=== PATIENT | female | born 1935 | race Caucasian/White ===

== ENCOUNTER 2016-09-02 13:36 | Emergency (ER) | payer OTHER ==
[2016-09-02 13:49] VITALS: RESP 16
--- NOTE | 2016-09-02 14:11 | EDPHY ---
H & P Stated Complaint: rt hand swelling/deformity s/p fall on ice 4 days ago Time Seen by Provider: 09/02/16 13:50 HPI/ROS: CHIEF COMPLAINT: Increased pain and swelling to the right hand and wrist HISTORY OF PRESENT ILLNESS: The patient presents to the ED for evaluation of increased pain and swelling to the right hand and wrist. The patient reportedly had a mechanical fall 4 days ago. She thought her symptoms were improving however had worsening swelling and pain over the past 24 hours. This prompted her visit to the ED. Patient denies any focal numbness or weakness. She denies associated pain in her elbow, shoulder, neck or back. REVIEW OF SYSTEMS: A comprehensive 10 point review of systems is otherwise negative aside from elements mentioned in the history of present illness. Source: Patient Exam Limitations: No limitations - Personal History Current Tetanus/Diphtheria Vaccine: Yes Current Tetanus Diphtheria and Acellular Pertussis (TDAP): Yes Tetanus Vaccine Date: 2008 - Medical/Surgical History Hx Asthma: No Hx Chronic Respiratory Disease: No Hx Diabetes: No Hx Cardiac Disease: No Hx Renal Disease: No Hx Cirrhosis: No Hx Alcoholism: No Hx HIV/AIDS: No Hx Splenectomy or Spleen Trauma: No Other PMH: denies - Social History Smoking Status: Never smoked - Physical Exam Exam: General Appearance: Alert, no distress Head: Atraumatic Eyes: Pupils equal, round, reactive ENT, Mouth: No hemotympanum, no oral trauma Neck: Nontender, trachea midline Respiratory: No chest wall tender, subcutaneous air, lungs clear bilaterally Cardiovascular: Regular rate and rhythm Abdomen: Abdomen is soft and nontender, pelvis stable Skin: No lacerations, No abrasion Back: No midline T/L/S pain Extremities: Bruising, ecchymosis, tenderness and deformity noted to right distal radius, no elbow or shoulder pain Neurological: Sensation intact to light touch throughout right upper extremity Constitutional: Initial Vital Signs Heart Rate 83 09/02/16 13:43 Respiratory Rate 16 09/02/16 13:43 Blood Pressure 140/70 H 09/02/16 13:43 O2 Sat (%) 96 09/02/16 13:43 O2 Delivery Mode Room Air Allergies/Adverse Reactions: Penicillins Allergy (Verified 09/02/16 13:43) Home Medications: Medication Instructions Recorded Hydrocodone/APAP 5/325 [Clinton 1 - 2 each PO Q6 PRN #20 tab 09/02/16 5/325] Medical Decision Making - Diagnostics Imaging: Right wrist x-ray: Angulated, comminuted distal radius fracture noted. Images reviewed by myself. Post reduction right wrist x-ray: Some improvement of the angular displacement of the distal radius fracture however there is still displacement secondary to a keyed type fracture protrusion. The patient is noted to be neurologically intact. Procedures: Procedure: Distal radius fracture reduction The patient had a comminuted displaced distal radius fracture reduced by myself after a hematoma block with 5 cc of 1% Marcaine.. The patient tolerated the procedure well. There is not optimal realignment and the fracture fragment continues to demonstrate approximately 50% of dorsal displacement. The patient was placed in a sugar-tong splint by myself. The patient is neurologically intact. She will be referred to our on-call orthopedic surgeon Dr. Ye as she may require ORIF for optimal alignment. The patient will be discharged home with a prescription for Clinton. Procedure: Splint placement. A ortho glass sugar-tong splint was applied to the right upper extremity by [ the tech]. After application of the splint I returned and re-examined the patient. The splint was adequately immobilizing the joint and distal to the splint the patient's circulation and sensation was intact. ED Course/Re-evaluation: The patient presents to the ED with swelling to her right wrist and hand following a mechanical fall. She did have a ring retained on her right 5th finger which was expertly and carefully removed by our ordnance engineering technician Khadijah. Differential Diagnosis: Differential diagnosis considered includes fracture, sprain, dislocation Departure - Departure Disposition: Home, Routine, Self-Care Clinical Impression: Fracture of distal end of radius Condition: Good Instructions: Wrist Fracture in Adults (ED) Additional Instructions: 1. Please schedule a follow-up appointment with the orthopedic surgeon you have been referred to on Sunday for a follow-up visit and discussed treatment options for your fracture. 2. Ice as directed 3. Clinton as needed for pain. Referrals: Bobby Ye MD [Medical Doctor] - As per Instructions
--- NOTE | 2016-09-02 15:16 | DX ---
Right Wrist Series, 4 views dated September 02, 2016 14:15 Indication: Pain. Fall. Findings: A transverse fracture courses through the distal radial metaphysis. The distal fracture f ragment is translated dorsally 1/3rd bone width, minimally impacted, and has mild apex volar angulati on. A subtle fracture may extend to the articular surface along the ulnar margin of the fracture frag ment. Carpal bones normally articulate with the displaced distal fracture fragment. The distal ulna i s intact. Impression: Acute angulated and displaced transverse distal radius fracture.
--- NOTE | 2016-09-02 15:37 | DX ---
Right Wrist - 2 Views dated September 02, 2016 at 3:01 p.m. Indication: Post reduction. Findings: The distal radius fracture fragment is no longer angulated and has been partially reduced. The fracture fragment remains posteriorly displaced one quarter of the bone width. The bones are in n ear-anatomic alignment. Overlying fiberglass splint partially obscures bony detail. Impression: Near-anatomic reduction of distal radius fracture.
[2016-09-02 15:49] VITALS: BP 136/76; PULSE 80; O2SAT 94
== END 2016-09-02 15:48 | disposition home or self-care (01) ==
PROC: 0PSHXZZ Reposition Right Radius, External Approach (ICD-10-PCS; principal; 2016-09-02)
DX: S52.501A Unspecified fracture of the lower end of right radius, initial encounter for closed fracture (principal); W18.39XA Other fall on same level, initial encounter; Y93.89 Activity, other specified
CPT/HCPCS: 25605; 73100; 73110; 99283; A4565

== ENCOUNTER → 2016-09-13 | Outpatient (CLI) | payer OTHER ==
--- NOTE | 2016-09-13 10:58 | DX ---
Right wrist, 3 views. HISTORY: Follow-up fracture. COMPARISON STUDY: September 02, 2016. FINDINGS: Again demonstrated is a transverse distal right radial metaphyseal fracture. From prior damon dy, there is progressive dorsal displacement of the distal radial fracture fragment, currently displa reg by 7.5 mm, with increasing dorsal angulation of the distal radial articular surface. Fragmentatio n and comminution of the dorsal aspect of the distal radial fracture component is present. There is f oreshortening of the radius with secondary ulna plus deformity. No carpal fracture identified, and al ignment is anatomic through the carpus. IMPRESSION: 1. Transverse displaced distal left radial fracture, with increasing dorsal displacement and angulati on of the distal radial fracture fragment from prior study. Comminution of the dorsal aspect of the d istal fracture fragment is present. Secondary impaction and ulna plus deformity.
== END ==
LOC: BMCIMAGING 10:39
PROVIDERS: ATTEND Physician Assistant
DX: S52.501G Unspecified fracture of the lower end of right radius, subsequent encounter for closed fracture with delayed healing (principal); M21.931 Unspecified acquired deformity of right forearm

== ENCOUNTER → 2016-10-17 | Outpatient (CLI) | payer OTHER | LOC: BMCIMAGING 13:08 | PROVIDERS: ATTEND Physician Assistant | DX: S52.501D Unspecified fracture of the lower end of right radius, subsequent encounter for closed fracture with routine healing (principal) ==

== ENCOUNTER → 2016-11-14 | Outpatient (CLI) | payer OTHER | LOC: BMCIMAGING 13:19 | PROVIDERS: ATTEND Physician Assistant | DX: S52.501D Unspecified fracture of the lower end of right radius, subsequent encounter for closed fracture with routine healing (principal); Z96.89 Presence of other specified functional implants ==

== ENCOUNTER → 2018-05-24 | Outpatient (CLI) | payer OTHER | LOC: FIMAGING 11:08 | PROVIDERS: ATTEND Internal Medicine | DX: R18.8 Other ascites (principal); I31.3 Pericardial effusion (noninflammatory); J90 Pleural effusion, not elsewhere classified; R93.8 Abnormal findings on diagnostic imaging of other specified body structures ==

== ENCOUNTER → 2018-10-02 | Outpatient (CLI) | payer OTHER | LOC: FIMAGING 13:45 | PROVIDERS: ATTEND Orthopaedic Surgery | DX: M16.11 Unilateral primary osteoarthritis, right hip (principal) ==

== ENCOUNTER → 2018-10-11 | Outpatient (CLI) | payer OTHER | LOC: FIMAGING 07:54 | PROVIDERS: ATTEND Internal Medicine | DX: J90 Pleural effusion, not elsewhere classified (principal) ==

== ENCOUNTER 2018-11-04 09:16 | Inpatient (IN) | payer OTHER ==
--- NOTE | 2018-11-04 06:41 | PDHPUP ---
History & Physical Update H&P update statement: This history and physical update is based on an assessment of the patient which was completed after admission or registration (within 24 hours), but prior to the surgery/procedure. H&P update: no change in patient's condition since H&P completed
--- NOTE | 2018-11-04 06:42 | PDIAF ---
- Diagnosis Diagnosis: right hip djd Code Status: Full Code - Medication Management Discharge Medications: electronically signed and located in the Home Medication List. - Orders Services needed: Home Care, Physical Therapy Home Care Face to Face: I certify that this patient was under my care and that I had the required [id number]-acnm encounter meeting the encounter requirements on the discharge day. My findings support the fact that the patient is homebound as defined in Home Care Face to Face Continued: CMS Chapter 7 Medicare Benefits Manual 30.1.1 , The condition of the patient is such that there exists a normal inability to leave home and consequently, leaving home would require a considerable and taxing effort. Diet Recommendation: no restrictions on diet Diet Texture: Regular Texture Diet Additional Instructions: TOTAL JOINT ARTHROPLASTY DISCHARGE INSTRUCTIONS 1. Your surgeon follows the [facility] protocol for reducing your risk of DVT (blood clots) following surgery. Medication will be ordered to prevent blood clots. A sudden increase in calf pain and/or swelling could indicate a blood clot in your leg. If this occurs, please call your surgeon or his/her facility assistant. An ultrasound of the leg may be necessary to diagnose a blood clot. If you have conditions that make you a higher risk for blood clots, your surgeon may use more aggressive ways to prevent them. Notify your surgeon if you think you are a high risk for blood clots. 2. Wear your white surgical stockings (REBA hose) for 2 weeks. This decreases your swelling and may help prevent blood clots. It is ok to remove REBA hose at night time to give your legs a break. 3. Swelling and bruising in the surgical leg is common. If you feel that it is excessive, please notify your surgeon. 4. Elevate your surgical leg with the ankle above the hip several times every day. Please keep the leg straight when you elevate by putting pillows under your foot. Do not put pillows under your knee. This will make being able to fully straighten more difficult. This is uncomfortable, but try to do it as much as possible. 5. For total knee replacements use compressive wrap on your knee for 3-5 days after surgery, then you can discontinue it. 6. Use a walker or crutches for 1-2 weeks. Progress your weight-bearing as tolerated. You may start to use a cane when you feel stable and safe. 7. You will receive physical therapy instructions in the hospital. Continue those exercises at home. There are additional exercises in the total joint booklet you were given before surgery. Outpatient physical therapy will begin 7- 10 days after surgery. Please schedule this in advance. 8. Use ice on your knee at least 3-5 times every day for 30 minutes. This helps reduce pain and swelling. Also use it at night before falling asleep. 9. Leave your surgical dressing in place for 2 weeks. Your dressing is water resistant, but not waterproof. Cover it with Saran Wrap or Grvzj-h-Szae before showering. You may shower as soon as you feel safe entering a shower. If you notice bleeding from your incision 2 or 3 days after surgery, please notify your surgeon. 10. Due to narcotics, decreased activity and altered diet, most patients experience constipation after surgery. Use etak-lxn-fnarpob stool softeners while you are on narcotics. 11. You may drive a car when you are comfortable bearing weight, have good muscular control of your leg and are off narcotics. This usually occurs 2-4 weeks after surgery, depending on which leg was operated on. 12. If there are questions not addressed here, please refer the [facility] book given for more information. If you still have questions, please contact your surgeon s office. 13. If you have a life-threatening emergency, please call 911 and go to the emergency room immediately. For non-life threatening emergencies, please call your physicians office for advice before going to the emergency room. - Follow Up Care Current Providers and Referrals: Felix Ramachandran MD [Primary Care Provider] - Bobby Ye MD [Medical Doctor] -
[2018-11-04] MEDS ORDERED: ceFAZolin 1 GM/5 ML SYR ONE (09:41)
[2018-11-04] MEDS ORDERED: LR 1,000 ML IV ONE (09:45)
[2018-11-04] MEDS ORDERED: ACETAMINOPHEN 325 MG TAB PO ONE (09:45)
[2018-11-04] MEDS ORDERED: FAMOTIDINE 20 MG TAB PO ONE (09:45)
[2018-11-04] MEDS ORDERED: FAMOTIDINE 20 MG TAB ONE (10:26)
[2018-11-04] MEDS ORDERED: MIDAZOLAM 2 MG/2 ML VIAL IVP ONE (10:27)
--- NOTE | 2018-11-04 10:27 | PDANEPAE ---
ANE History of Present Illness ang ANE Past Medical History - Cardiovascular History Hx Hypertension: No Hx Arrhythmias: No Hx Chest Pain: No Hx Coronary Artery / Peripheral Vascular Disease: No Hx CHF / Valvular Disease: No Hx Palpitations: No - Pulmonary History Hx COPD: No Hx Asthma/Reactive Airway Disease: No Hx Recent Upper Respiratory Infection: No Hx Oxygen in Use at Home: No Hx Sleep Apnea: No Sleep Apnea Screening Result - Last Documented: Negative - Neurologic History Hx Cerebrovascular Accident: No Hx Seizures: No Hx Dementia: No - Endocrine History Hx Diabetes: No Hypothyroid: No Hyperthyroid: No Obesity: no - Renal History Hx Renal Disorders: No - Liver History Hx Hepatic Disorders: No - Neurological & Psychiatric Hx Hx Neurological and Psychiatric Disorders: No - Cancer History Hx Cancer: No Cancer History Comment: FOREHEAD MELANOMA REMOVED - Congenital Disorder History Hx Congenital Disorders: No - GI History GERD: mild Hx Gastrointestinal Disorders: Yes Gastrointestinal History Comment: ACID REFLUX - Other Health History Other Health History: ANEMIA - IRON INFUSIONS X3 RECENT - L.D.4 WKS AGO - Chronic Pain History Chronic Pain: Yes (R HIP) - Surgical History Prior Surgeries: WRIST FX R REPAIR. CATARACTS. COLONOSCOPY/EGD 2018 ANE Review of Systems Review of Systems: - Exercise capacity Exercise capacity: >=4 METS METS (RN): 4 METS ANE Patient History - Allergies Allergies/Adverse Reactions: Penicillins Allergy (Verified 09/02/16 13:43) - Home Medications Home medications: home medication list seen and reviewed Home Medications: Ascorbic Acid [Vitamin C 500 mg (*)] 500 mg PO DAILY 10/14/18 [Last Taken ] Cholecalciferol Vit D3 [Vitamin D3 (*)] 1,000 units PO DAILY 10/14/18 [Last Taken 10/28/18] Cyanocobalamin [Vitamin B12 (*)] 1,000 mcg PO DAILY 10/14/18 [Last Taken ] Herbals/Supplements -Info Only 1 ea PO DAILY 10/14/18 [Last Taken 10/28/18] Omeprazole 40 mg PO DAILY18 10/14/18 [Last Taken 11/03/18] - Anes Hx Anes Hx: no prior problems - Smoking Hx Smoking Status: Never smoked ANE Labs/Vital Signs - Vital Signs Height: 154.94 cm Weight: 46.266 kg ANE Physical Exam - Airway Mallampati Score: Class 2 Mouth exam: normal dental/mouth exam - Pulmonary Pulmonary: no respiratory distress - Cardiovascular Cardiovascular: regular rate and rhythym - ASA Status ASA Status: II ANE Anesthesia Plan Anesthesia Plan: spinal
[2018-11-04] MEDS ORDERED: LIDOCAINE 2% 2 ML INJ ONE (10:30)
[2018-11-04] MEDS ORDERED: fentaNYL 100 MCG/2 ML INJ ONE (10:30)
[2018-11-04] MEDS ORDERED: PROPOFOL/EMULSION 500 MG/50 ML BOTTLE IV ONE (10:30)
[2018-11-04] MEDS ORDERED: BUPIVACAINE 0.5% 30 ML SDV ONE (10:37)
[2018-11-04] MEDS ORDERED: TRANEXAMIC ACID 1,000 MG in NS 100 ML IV ONE (11:45)
[2018-11-04] MEDS ORDERED: ROPIVACAINE 0.2% 80 MG, EPINEPHrine 0.2 MG, KETOROLAC TROMETHAMINE 30 MG, morphINE 10 M... IU ONE (11:45)
[2018-11-04] MEDS ORDERED: VANCOMYCIN PHARMACY TO DOSE MISC ONE (11:45)
[2018-11-04] MEDS ORDERED: VANCOMYCIN 750 MG in D5W 150 ML IV ONE (11:45)
[2018-11-04] MEDS ORDERED: ePHEDrine SULFATE 25 MG/5 ML SYR ONE (12:06)
[2018-11-04] MEDS ORDERED: ALBUTEROL 3 ML DEYVIAL IH PRN (12:38)
[2018-11-04] MEDS ORDERED: NALOXONE HCL 0.4 MG/ML INJ IVP PRN (12:38)
[2018-11-04] MEDS ORDERED: PHENYLEPHRINE HCL 100 MCG/ML SYR IVP PRN (12:38)
[2018-11-04] MEDS ORDERED: fentaNYL 100 MCG/2 ML INJ IVP PRN (12:38)
[2018-11-04] MEDS ORDERED: HYDROmorphONE/DILAUDID 2 MG/ML INJ IVP PRN (12:38)
[2018-11-04] MEDS ORDERED: METOCLOPRAMIDE 10 MG/2 ML VIAL IVP PRN (12:42)
[2018-11-04] MEDS ORDERED: diphenhydrAMINE 25 MG CAP PO PRN (12:42)
[2018-11-04] MEDS ORDERED: oxyCODONE IR 5 MG TAB PO PRN (12:42)
[2018-11-04] MEDS ORDERED: PROMETHAZINE HCL 25 MG SUPPR PR PRN (12:42)
[2018-11-04] MEDS ORDERED: DIPHENOXYLATE/ATROPINE LOMOTIL 1 TAB PO PRN (12:42)
[2018-11-04] MEDS ORDERED: BISACODYL 10 MG SUPP PR PRN (12:42)
[2018-11-04] MEDS ORDERED: ONDANSETRON 4 MG/2 ML VIAL IVP PRN (12:42)
[2018-11-04] MEDS ORDERED: CYCLOBENZAPRINE 10 MG TAB PO PRN (12:42)
[2018-11-04] MEDS ORDERED: TEMAZEPAM 15 MG CAP PO PRN (12:42)
[2018-11-04] MEDS ORDERED: LACTULOSE 20 GM/30 ML UDCUP PO PRN (12:42)
[2018-11-04] MEDS ORDERED: MAGNESIUM HYDROXIDE 30 ML UDCUP PO PRN (12:42)
[2018-11-04] MEDS ORDERED: POLYETHYLENE GLYCOL 3350 17 GM PKT PO PRN (12:42)
[2018-11-04] MEDS ORDERED: ONDANSETRON DISINTEGRATING 4 MG TAB PO PRN (12:42)
[2018-11-04] MEDS ORDERED: PROMETHAZINE HCL 25 MG/ML INJ IVP PRN (12:42)
--- NOTE | 2018-11-04 12:42 | POSTOPPROG ---
Post Op Note Date of Operation: 11/04/18 Surgeon: Bobby Ye Compounder Helper: sammi Anesthesiologist: delroy Anesthesia: Spinal Pre-op Diagnosis: right hip djd Post-op Diagnosis: same Indication: same Procedure: right ang Inf/Abcess present in the surg proc area at time of surgery?: No Depth: Deep Incisional (Fascial) EBL: 100-500 Drains: Hemovac
--- NOTE | 2018-11-04 12:58 | POSTANESTH ---
Post Anesthetic Evaluation Cardiovascular Status: Normal, Stable Respiratory Status: Normal, Stable Level of Consciousness/Mental Status: Can Participate in Eval Pain Control: Adequate, Prn Tx Ordered Nausea/Vomiting Control: Adequate, Prn Tx Ordered Complications Possibly Related to Anesthesia: None Noted
--- NOTE | 2018-11-04 13:19 | PDMN ---
Medical Necessity Medical necessity: [facility] [place] S560 Hip Arthroplasty, A-2 days: 83 yo s/p R MAGALY, [facility] IP only
[2018-11-04] MEDS: LR 1,000 ML IV SCH ×2 (16:06→23:17)
[2018-11-04] MEDS: TRANEXAMIC ACID 650 MG TAB PO SCH ×2 (16:10→23:12)
[2018-11-04] MEDS: FAMOTIDINE 20 MG TAB PO SCH (20:01)
[2018-11-04] MEDS: SENNOSIDES/DOCUSATE SODIUM TAB PO SCH (20:01)
[2018-11-04] MEDS: ASPIRIN 325 MG TAB PO SCH (20:17)
[2018-11-04] MEDS: ACETAMINOPHEN 325 MG TAB PO SCH (20:17)
[2018-11-05] MEDS: ACETAMINOPHEN 325 MG TAB PO SCH ×3 (01:30→13:24)
[2018-11-05] MEDS: TRANEXAMIC ACID 650 MG TAB PO SCH (06:06)
--- NOTE | 2018-11-05 06:55 | PDIAF ---
- Diagnosis Diagnosis: right hip djd Code Status: Full Code - Medication Management Discharge Medications: electronically signed and located in the Home Medication List. - Orders Services needed: Home Care, Physical Therapy Home Care Face to Face: I certify that this patient was under my care and that I had the required eprw-zq-mnte encounter meeting the encounter requirements on the discharge day. My findings support the fact that the patient is homebound as defined in Home Care Face to Face Continued: CMS Chapter 7 Medicare Benefits Manual 30.1.1 , The condition of the patient is such that there exists a normal inability to leave home and consequently, leaving home would require a considerable and taxing effort. Diet Recommendation: no restrictions on diet Diet Texture: Regular Texture Diet Additional Instructions: TOTAL JOINT ARTHROPLASTY DISCHARGE INSTRUCTIONS 1. Your surgeon follows the [facility] protocol for reducing your risk of DVT (blood clots) following surgery. Medication will be ordered to prevent blood clots. A sudden increase in calf pain and/or swelling could indicate a blood clot in your leg. If this occurs, please call your surgeon or his/her hr assistant. An ultrasound of the leg may be necessary to diagnose a blood clot. If you have conditions that make you a higher risk for blood clots, your surgeon may use more aggressive ways to prevent them. Notify your surgeon if you think you are a high risk for blood clots. 2. Wear your white surgical stockings (REBA hose) for 2 weeks. This decreases your swelling and may help prevent blood clots. It is ok to remove REBA hose at night time to give your legs a break. 3. Swelling and bruising in the surgical leg is common. If you feel that it is excessive, please notify your surgeon. 4. Elevate your surgical leg with the ankle above the hip several times every day. Please keep the leg straight when you elevate by putting pillows under your foot. Do not put pillows under your knee. This will make being able to fully straighten more difficult. This is uncomfortable, but try to do it as much as possible. 5. For total knee replacements use compressive wrap on your knee for 3-5 days after surgery, then you can discontinue it. 6. Use a walker or crutches for 1-2 weeks. Progress your weight-bearing as tolerated. You may start to use a cane when you feel stable and safe. 7. You will receive physical therapy instructions in the hospital. Continue those exercises at home. There are additional exercises in the total joint booklet you were given before surgery. Outpatient physical therapy will begin 7- 10 days after surgery. Please schedule this in advance. 8. Use ice on your knee at least 3-5 times every day for 30 minutes. This helps reduce pain and swelling. Also use it at night before falling asleep. 9. Leave your surgical dressing in place for 2 weeks. Your dressing is water resistant, but not waterproof. Cover it with Saran Wrap or Nerrx-z-Fbqf before showering. You may shower as soon as you feel safe entering a shower. If you notice bleeding from your incision 2 or 3 days after surgery, please notify your surgeon. 10. Due to narcotics, decreased activity and altered diet, most patients experience constipation after surgery. Use kiwv-rwz-drnpykv stool softeners while you are on narcotics. 11. You may drive a car when you are comfortable bearing weight, have good muscular control of your leg and are off narcotics. This usually occurs 2-4 weeks after surgery, depending on which leg was operated on. 12. If there are questions not addressed here, please refer the [facility] book given for more information. If you still have questions, please contact your surgeon s office. 13. If you have a life-threatening emergency, please call 911 and go to the emergency room immediately. For non-life threatening emergencies, please call your physicians office for advice before going to the emergency room. - Follow Up Care Current Providers and Referrals: Felix Ramachandran MD [Primary Care Provider] - Bobby Ye MD [Medical Doctor] -
--- NOTE | 2018-11-05 06:56 | SOAPPROG ---
SOAP Progress Note Assessment/Plan: Assessment: s/p right ang Plan:d/c home anemia, continue f/u with pcp f/u at two weeks dvt precautions reviewed seek attn for increasing complaints 11/05/18 06:55 Subjective: no cp or sob sarina po min co Objective: Vital Signs Temp Pulse Resp BP Pulse Ox 36.9 C 73 14 124/63 H 95 11/05/18 03:32 11/05/18 03:32 11/05/18 03:32 11/05/18 03:32 11/05/18 03:32 Laboratory Results 11/05/18 04:57 11/04/18 11/05/18 11/06/18 05:59 05:59 05:59 Intake Total 3309 Output Total 1745 Balance 1564 dressing intact intact pf,df,ehl toes warm and pink neg homans deven xrays stable anatomic alignement no fx or lucency ICD10 Worksheet Patient Problems: Problems Problem Status Onset Hip arthritis Acute - ICD10 Problem Qualifiers (1) Hip arthritis
[2018-11-05] MEDS: ASPIRIN 325 MG TAB PO SCH (09:58)
[2018-11-05] MEDS: FAMOTIDINE 20 MG TAB PO SCH (09:58)
[2018-11-05] MEDS: SENNOSIDES/DOCUSATE SODIUM TAB PO SCH (09:58)
--- NOTE | 2018-11-05 10:11 | ASMTLACE ---
LACE Length of stay for Answers: 2 days current admission Acuity / Level of Answers: Yes Care: Did the patient have an inpatient admission? Comorbidities - select Answers: Opioid dependence all that apply / Chronic pain # of Emergency department Answers: 0 visits in the last 6 months Score: 9 Date Signed: 11/05/2018 10:11 AM Electronically Signed By:LORA Singh
--- NOTE | 2018-11-05 10:13 | ASMTCMCOM ---
CM Note CM Note Notes: Pt had planned OA of hip. MD ordered [facility] and pre-arranged [facility]. Pt does want [facility] and Lary with [facility] will see pt before d/c. Orders sent in [employer]. Date Signed: 11/05/2018 10:12 AM Electronically Signed By:LORA Singh
--- NOTE | 2018-11-05 15:02 | GOP ---
[f rep st] OPERATIVE REPORT DATE OF OPERATION: 11/04/2018 SURGEON: Bobby Ye MD EVAPORATOR SUPERVISOR: Giorgi Landeros, MEAT MANAGER, [facility], whose was a medical necessity for the entirety of the case. PREOPERATIVE DIAGNOSIS: Right hip degenerative joint disease. POSTOPERATIVE DIAGNOSIS: Right hip degenerative joint disease. PROCEDURE PERFORMED: Right total hip arthroplasty. FINDINGS: SPECIMENS: To Pathology, bony cuts and femoral head. DESCRIPTION OF PROCEDURE: The patient was identified in the preanesthesia area. The right hip clear ly demarcated as the operative site with indelible marker. She was given 1 g of vancomycin IV en rou te to the operative suite, given a penicillin allergy. In the OR, spinal anesthetic was placed. She was positioned in the supine position. The pelvis and both lower extremities were sterilely prepped and draped in the usual fashion. Appropriate time-out procedure was carried out. Attention was fir st turned to the left hemipelvis. A 2 cm incision was made over the iliac crest. Three pins were th en placed and the pelvic reference array affixed. Attention was then turned to the right hip. An an terior approach was made. Thick subcutaneous flaps were elevated. The fascia of the tensor was open ed in the origin of its fibers. The muscle retracted laterally. The underlying vascular structures were identified, cauterized and transected. The retractors were placed in an extracapsular position. A T capsulotomy was made. The retractors were placed to an intracapsular position. An acetabular checkpoint was placed. A bony wedge was withdrawn from the femoral neck and the head was withdrawn. The soft tissue of the acetabulum was then sharply excised using the MAKOplasty software. Resection was made with a 52 mm reamer. A 52 mm Trident acetabular shell was then impacted and positioned in the appropriate position. A single 6.5 mm screw was placed for additional support. Zero-degree X3 l iner with 36 mm inner diameter was placed. Attention was then turned to the femur, which was deliver ed through the use of soft tissue releases and extension of the table. The proximal canal was opened , broached to a size 4, 127-degree neck angle hip stem. Trial reduction was carried out with a 36 mm -5 mm neck length. This allowed islam of leg lengths, full extension and external rotation to 90 degrees without instability. The trial stem was withdrawn. The final stem was impacted and conf irmed to be fully seated. The Biolox 36 mm -5 mm neck length Biolox head was impacted across the belinda nnion. Hip was irrigated and reduced into an anatomic position. Stability profile was as previous. The wound was copiously irrigated with pulsatile lavage solution. The tissue injected with a joint cocktail of ropivacaine, Toradol and epinephrine. The tensor closed using 0 Vicryl, subcutaneous tis ricardo closed using 2-0 Monocryl and the skin stapled. A sterile dressing was applied. The patient was awakened, extubated and taken to the recovery room in good, stable condition. OPERATIVE INDICATIONS: The patient is a -bazh-yno woman with end-stage [facility] Clinical and radiographic features are consistent with this. She has failed all attempts a t conservative management. I have, therefore, recommended operative intervention. I have outlined t he surgical procedure, risks, benefits and alternatives. She wished to proceed. Written consent was signed and placed in the patient's chart. TOTAL TOURNIQUET TIME: None. COMPLICATIONS: None. IMPLANTS: Ananda Trident II acetabular shell, size 52 mm, 6.5 mm screw, 0-degree X3 liner and 127-d egree neck angle hip stem, 36 mm, -5 mm neck length. /[id number]/MODL
[2018-11-05 15:08] VITALS: BP 125/59
--- NOTE | 2018-11-06 05:29 | GDS ---
[f rep st] DISCHARGE SUMMARY ADMIT DIAGNOSIS: Right hip degenerative joint disease. DISCHARGE DIAGNOSIS: Right hip degenerative joint disease. PROCEDURE: Right total hip arthroplasty. HISTORY OF PRESENT ILLNESS: The patient is a 83-year-old woman who presents for elective right tota l hip arthroplasty. HOSPITAL COURSE: The patient was admitted to the floor after uncomplicated total hip arthroplasty. S he had no additional complications. At the time of discharge, she is tolerating an oral diet. Pain is well controlled on oral medicines. She is voiding without difficulty. Dressing is clean, dry, and in tact. She has negative Homans bilaterally. X-rays are stable with anatomic alignment. No fracture or lucency. DISCHARGE ACTIVITY: She is weightbearing as tolerated. Anterior hip precautions. Keep the dressing c lean, dry, and intact. FOLLOWUP: In 2 weeks. Seek attention for increasing redness, swelling, drainage, discharge, or other focal complaints. DISCHARGE MEDICATIONS: Aspirin 325 mg p.o. daily for 6 weeks and oxycodone 5 mg 1-2 every 6 hours p. r.n. pain. /[id number]/MODL
--- NOTE | 2018-11-06 10:12 | ASDISCHSUM ---
Discharge Information Plan Status:Home with Home Health Medically Cleared to Leave: Discharge Date:11/05/2018 04:53 PM CM D/C Disposition: ADT D/C Disposition:Home Health Service Projected Discharge Date:11/05/2018 11:00 AM Transportation at D/C: Discharge Delay Reason: Follow-Up Date:11/05/2018 11:00 AM Discharge Slot: Final Diagnosis: Placement Information Referral Type:*Home Health Care Services Referral ID:[id number] Provider Name:[facility] ([facility]) Address 1:[address] [address] Address 2: City:[place] Selection Factors: State:[place] Patient Contact Information Contact Name:TIFFANIE Relationship:Daughter Address: Work Phone: City:[place] Alternate Phone: State/Zip Code:[place] Email: Financial Information Financial Class:Medicare Primary Plan Desc:MEDICARE INPATIENT Primary Plan Number:[id number] Secondary Plan Desc: Secondary Plan Number: Assessment Information LACE LACE Length of stay for Answers: 2 days current admission Acuity / Level of Answers: Yes Care: Did the patient have an inpatient admission? Comorbidities - select Answers: Opioid dependence all that apply / Chronic pain # of Emergency department Answers: 0 visits in the last 6 months Score: 9 Date Signed: 11/05/2018 10:11 AM Electronically Signed By:LORA Singh [facility] Progress Note CM Note CM Note Notes: Pt had planned OA of hip. ordered [facility] and pre-arranged [facility]. Pt does want [facility] and [facility] with [facility] will see pt before d/c. Orders sent in [employer]. Date Signed: 11/05/2018 10:12 AM Electronically Signed By:LORA Singh Intervention Information
== END 2018-11-05 16:53 | disposition home health service (06) | DRG 470 ==
LOC: F3N 09:16
PROVIDERS: ADMIT Orthopaedic Surgery; ATTEND Orthopaedic Surgery
PROC: 0SR904A Replacement of Right Hip Joint with Ceramic on Polyethylene Synthetic Substitute, Uncemented, Open Approach (ICD-10-PCS; principal; 2018-11-04 11:45)
PROC: 8E0YXCZ Robotic Assisted Procedure of Lower Extremity (ICD-10-PCS; principal; 2018-11-04 11:45)
DX: M16.11 Unilateral primary osteoarthritis, right hip (principal); D64.9 Anemia, unspecified; K21.9 Gastro-esophageal reflux disease without esophagitis; Z85.820 Personal history of malignant melanoma of skin
CPT/HCPCS: 97116-GP; 97161-GP; 97165-GO; C1713; J0171; J1885; J2270; J2405; J2704; J2795; J3010; J3370

== ENCOUNTER → 2018-12-17 | Outpatient (CLI) | payer OTHER | LOC: BMCIMAGING 13:10 | PROVIDERS: ATTEND Physician Assistant | DX: Z47.1 Aftercare following joint replacement surgery (principal); Z96.641 Presence of right artificial hip joint ==

== ENCOUNTER → 2019-01-23 | Outpatient (CLI) | payer OTHER | LOC: BMCIMAGING 09:08 ==

== ENCOUNTER → 2019-01-28 | Outpatient (CLI) | payer OTHER | LOC: BMCIMAGING 10:54 ==